=== PATIENT | male | born 1955 | race Caucasian/White ===

== ENCOUNTER → 2017-04-09 | Outpatient (CLI) | payer OTHER ==
[2016-05-09 09:43] VITALS: BP 105/86
--- NOTE | 2017-04-09 11:08 | MRI ---
HISTORY: Headaches Study: MRI brain without contrast Comparison: None Technique: Multi planar multi sequence non contrast images and diffusion imaging Findings: The ventricles are normal in size shape and position. There are no areas of abnormal diffusion restr iction suggestive of recent or acute CVA. There are no areas of abnormal signal to suggest remote CV A, hemorrhage, mass lesion, inflammation, or extra-axial fluid collection. Appropriate vascular flow voids are present. The CP angles are clear as are the sinuses. There is a minimal amount of fluid i n the left mastoid air cells and some fluid in the aerated air cells at the leftpetrous apex. Mastoi ditis is possible and clinical correlation is recommended. IMPRESSION: No significant intracranial abnormality Small amount of fluid in the left mastoid air cells and in the air cells of the left petrous apex p ossibly related tube mastoiditis. Clinical correlation is recommended. Reported By:
== END ==
LOC: RAD 09:23
PROVIDERS: ATTEND Psychiatry & Neurology Neurology
DX: R51 Headache (principal); R42 Dizziness and giddiness
CPT/HCPCS: 70551; 95819